=== PATIENT | male | born 1985 | race Caucasian/White ===

== ENCOUNTER 2020-10-31 17:13 | Emergency (ER) | payer OTHER ==
[~2020-10-31] VITALS: Ht 172.7 cm; Wt 79.4 kg
--- NOTE | 2020-10-31 17:30 | NUR ---
The patient is bibs for c/o L sided testicular tenderness started last night. Rates pain 6/10. Denies nausea/vomiting. Abdomen soft and non-distended. Warm blanket provided for comfort. Will continue to monitor the patient.
--- NOTE | 2020-10-31 17:34 | NUR ---
urine collected and sent to the lab
[2020-10-31 17:37] LABS: BILIRUBIN,URINE Negative (NEGATIVE); COLOR,URINE YELLOW (YELLOW); LEUKOCYTE ESTERASE ,URINE Negative (NEGATIVE); NITRITE, URINE Negative (NEGATIVE); PH,URINE 6.5 (5.0-8.0); PROTEIN,URINE Negative (NEGATIVE); UGLUCOSE Negative (NEGATIVE); UROBILINOGEN,URINE 0.2 EU/dL (0.2)
[2020-10-31] MEDS ORDERED: IBUPROFEN 600 MG TABLET PO ONE (18:30)
[2020-10-31] MEDS ORDERED: IBUPROFEN 600 MG TABLET ONE (18:40)
[2020-10-31] MEDS ORDERED: IBUP-1955 PO (19:36)
[2020-10-31 19:44] VITALS: BP 112/70
--- NOTE | 2020-10-31 19:44 | NUR ---
The patient alert and oriented x4. Patient discharged to home in stable condition. Written and verbal after care instructions given. Patient verbalizes understanding of instruction.
== END 2020-10-31 19:45 | disposition home or self-care (01) ==
LOC: ER 17:13
DX: N43.3 Hydrocele, unspecified (principal); Z79.899 Other long term (current) drug therapy
CPT/HCPCS: 76870-TC